=== PATIENT | male | born 2000 | race Two or more races ===

== ENCOUNTER 2020-03-06 21:15 | Emergency (ER) | payer OTHER ==
[~2020-03-06] VITALS: Ht 170.2 cm; Wt 74.8 kg
[2020-03-06 21:40] VITALS: BP 117/69
[2020-03-07] MEDS ORDERED: KETOROLAC TROMETH 60MG/2ML VIAL IM ONE (00:15)
== END 2020-03-07 01:01 | disposition home or self-care (01) ==
LOC: ER 21:20
DX: B37.0 Candidal stomatitis (principal)
CPT/HCPCS: 96372; 99283; J1885

== ENCOUNTER 2021-04-22 19:44 | Emergency (ER) | payer OTHER ==
[~2021-04-22] VITALS: Ht 175.3 cm; Wt 72.6 kg
[2021-04-22 21:43] VITALS: BP 117/77
[2021-04-22] MEDS ORDERED: METH500T22 PO (22:44)
[2021-04-22] MEDS ORDERED: IBUP800T27 PO (22:44)
[2021-04-22] MEDS ORDERED: KETOROLAC TROMETH 30 MG/ML 1ML VIAL IM ONE (23:00)
== END 2021-04-23 00:19 | disposition home or self-care (01) ==
LOC: ER 19:44
DX: S13.4XXA Sprain of ligaments of cervical spine, initial encounter (principal); S00.81XA Abrasion of other part of head, initial encounter; V43.52XA Car driver injured in collision with other type car in traffic accident, initial encounter; Y93.89 Activity, other specified; Y92.89 Other specified places as the place of occurrence of the external cause; Y99.8 Other external cause status
CPT/HCPCS: 70450; 70486; 71250; 72125; 74176